=== PATIENT | male | born 1990 | race Caucasian/White ===

== ENCOUNTER 2021-08-20 07:49 | Day surgery (SDC) | payer OTHER ==
[~2021-08-20] VITALS: Ht 180.3 cm; Wt 86.0 kg
[2021-08-20] VITALS (113 sets, daily range): BP systolic 92–160; BP diastolic 45–96
[2021-08-20 07:57] LABS: HEMATOCRIT 40.5 % (39.0-50.0); HEMOGLOBIN 13.9 g/dl (14.0-18.0); IMMATURE GRANULOCYTES 0.1 % (0.0-5.0); MEAN CELL VOLUME 86.5 fL CALC (80.0-100.0); MEAN CORPUSCULAR HGB 29.7 pG CALC (26.0-32.0); MEAN CORPUSCULAR HGB CONC 34.3 g/dL CAL (32.0-36.0); NEUT# 8.77 thou/uL (1.82-7.42); RED BLOOD COUNT 4.68 mill/uL (4.70-6.10)
[2021-08-20 08:31] LABS: ALBUMIN 4.9 g/dL (3.2-5.0); ALKALINE PHOSPHATASE 70 u/l (38-126); ANION GAP 14 (6-22 (CALC)); BILIRUBIN, TOTAL 0.7 mg/dL (0.0-1.4); BUN 10 mg/dL (9-20); BUN/CREATININE RATIO 15 (12-20 (CALC)); CARBON DIOXIDE 24 mmol/l (22-30); CHLORIDE 102 mmol/l (95-108); CREATININE 0.7 mg/dL (0.7-1.3); GFR FOR AFR.AMER. > 60 ML/MIN (>=60 (CALC)); GFR OTHER RACES > 60 ML/MIN (>=60 (CALC)); SGOT/AST 25 u/l (17-59); SODIUM 137 mmol/l (137-146); TOTAL PROTEIN 8.2 g/dL (6.3-8.2)
[2021-08-20] MEDS ORDERED: NALTREXONE50 MG PO (10:54)
[2021-08-20] MEDS ORDERED: CLONIDINE0.1 MG PO (10:55)
[2021-08-20] MEDS ORDERED: KLONOPIN2 MG PO (10:56)
[2021-08-21 03:40] VITALS: BP 132/72
[2021-08-21 05:54] LABS: HEMOGLOBIN 13.5 g/dl (14.0-18.0); IMMATURE GRANULOCYTES 0.2 % (0.0-5.0); MEAN CELL VOLUME 85.7 fL CALC (80.0-100.0); MEAN CORPUSCULAR HGB 29.7 pG CALC (26.0-32.0); MEAN CORPUSCULAR HGB CONC 34.6 g/dL CAL (32.0-36.0); NEUT# 8.35 thou/uL (1.82-7.42); RED BLOOD COUNT 4.55 mill/uL (4.70-6.10); RED CELL DISTRI WIDTH 12.1 % (11.5-15.5)
[2021-08-21 06:11] LABS: ALBUMIN 4.8 g/dL (3.2-5.0); ALKALINE PHOSPHATASE 59 u/l (38-126); ANION GAP 16 (6-22 (CALC)); BILIRUBIN, TOTAL 0.8 mg/dL (0.0-1.4); BUN 14 mg/dL (9-20); BUN/CREATININE RATIO 19 (12-20 (CALC)); CARBON DIOXIDE 25 mmol/l (22-30); CHLORIDE 99 mmol/l (95-108); CREATININE 0.7 mg/dL (0.7-1.3); GFR FOR AFR.AMER. > 60 ML/MIN (>=60 (CALC)); GFR OTHER RACES > 60 ML/MIN (>=60 (CALC)); MAGNESIUM 1.9 mg/dL (1.6-2.3); POTASSIUM 3.9 mmol/l (3.5-5.1); SGOT/AST 22 u/l (17-59); SODIUM 136 mmol/l (137-146); TOTAL PROTEIN 7.8 g/dL (6.3-8.2)
[2021-08-21 07:32] VITALS: BP 113/64
[2021-08-21 11:35] VITALS: BP 121/67
== END 2021-08-21 15:13 | disposition home or self-care (01) | DRG 897 ==
LOC: ANR 07:49 → MS2 07:51 → ANR 08-21 15:13
PROVIDERS: ATTEND Anesthesiology
DX: F11.20 Opioid dependence, uncomplicated (principal)
CPT/HCPCS: J2060; J2354